=== PATIENT | male | born 1990 | race Caucasian/White ===

== ENCOUNTER 2017-09-02 19:53 | Emergency (ER) | payer OTHER ==
[~2017-09-02] VITALS: Ht 175.3 cm; Wt 90.0 kg
[2017-09-02 20:04] VITALS: Ht 175.3 cm; Wt 90.0 kg
--- NOTE | 2017-09-02 20:21 | EMERGENCY ROOM VISIT NOTE ---
ED Visit Note First contact with patient: 19:59 CHIEF COMPLAINT: Alcohol overdose HISTORY OF PRESENT ILLNESS: This 27-year-old male patient presents to the emergency department via ambulance for evaluation of an alcohol overdose. The history is taken from the who is at the bedside. The patient was reportedly drinking rum and Coke. He then disappeared for 45 minutes. He was taking shots of tequila. There is no reported injury. REVIEW OF SYSTEMS: Once the patient was able to reliably answer questions a review of systems was performed with positives and pertinent negatives listed in the history of present illness. All other systems were reviewed and are negative. ALLERGIES: No known drug allergies MEDICATIONS: Reviewed PMH: Otherwise healthy SOCIAL HISTORY: He does not smoke, occasional alcohol use. PHYSICAL EXAM: VITALS: Vitals are noted on the nurse's note and reviewed by myself. Vital signs stable. GENERAL: 27-year-old male, responding to loud stimuli. Answering some questions appropriately. The patient is visibly intoxicated. SKIN: The skin was without obvious lacerations, abrasions, or rashes. There is no tenting of the skin. HEENT: Normocephalic, atraumatic. PERRLA. EOMI. Conjunctiva with mild injection without icterus. No epistaxis. Oropharynx without erythema or exudate. Uvula midline. Oral mucosal moist. No lymphadenopathy. Neck is supple without cervical spine tenderness. HEART: Regular rate and rhythm without murmurs gallops or rubs. LUNGS: Clear to auscultation bilaterally without wheezes, rales or rhonchi. MUSCULOSKELETAL: Gross motor function of the upper and lower extremities intact. The patient does not follow commands. NEUROLOGIC: The patient is visibly intoxicated. Once they were more sober they were alert and oriented to person place and time. EMERGENCY DEPARTMENT COURSE: I examined the patient. Conservative care measures were instituted. The patient was placed in a prone position. Aspiration precautions were instituted. The patient was placed on pest control service sales agent and watched during the patient's stay. The patient's blood alcohol level was 248 mg/dL. The patient did sober up and was able to talk, walk, and drink fluids without difficulty. The patient was given alcohol intoxication handouts. The patient was discharged home in stable condition with his . DIAGNOSIS: Acute alcohol intoxication DISCHARGE INSTRUCTIONS & TREATMENT: Please increase fluids over the next 48 hours. Refrain from alcohol use. Do not drive or operate machinery for the rest of the day. Tylenol 500 mg every 6 hours as needed for pain/headache This chart was completed in part utilizing [employer] Speech Voice Recognition software. Attempts were made to minimize the grammatical errors, random word insertions, pronoun errors and incomplete sentences. Any formal questions or concerns about the content, text or information contained within the body of this dictation should be directly addressed to the provider for clarification.
[2017-09-03] MEDS ORDERED: ONDANSETRON HOME PACK 4MG OD TAB PO ONE (01:30)
[2017-09-03 02:23] VITALS: BP 140/89; PULSE 68; O2SAT 98
== END 2017-09-03 01:08 | disposition home or self-care (01) ==
LOC: EDBD 19:53 → C.EDD 19:54
DX: F10.129 Alcohol abuse with intoxication, unspecified (principal); Y90.8 Blood alcohol level of 240 mg/100 ml or more